=== PATIENT | male | born 1940 | race Caucasian/White ===

== ENCOUNTER → 2021-05-21 | Outpatient (CLI) | payer MEDICARE, OTHER ==
--- NOTE | 2021-05-21 12:43 | RAD ---
XR CHEST 2V History: Reason: COUGH / Spl. Instructions: / History: Comparison: None. Findings: Mild ill-defined bibasilar opacities. Elevation of the right hemidiaphragm. No pleural effusion. No p neumothorax. Left-sided pacemaker. Enlarged cardiac size. Prior median sternotomy. Impression: 1. Mild bibasilar ill-defined opacities, likely atelectasis. 2. Elevation the right hemidiaphragm. 3. Cardiomegaly. Electronically signed by: Pascual Kendall DO (05/21/2021 12:41 PM) [id number]
== END ==
LOC: RAD 11:35
PROVIDERS: ATTEND Nurse Practitioner Family
DX: I51.7 Cardiomegaly (principal); R91.8 Other nonspecific abnormal finding of lung field; J98.6 Disorders of diaphragm; Z95.0 Presence of cardiac pacemaker
CPT/HCPCS: 71046

== ENCOUNTER 2021-05-22 15:33 | Inpatient (IN) | payer MEDICARE, OTHER ==
[~2021-05-22] VITALS: Ht 185.4 cm; Wt 95.3 kg
--- NOTE | 2021-05-22 16:23 | RAD ---
XR CHEST 1V Clinical History: Reason: abn labs / Spl. Instructions: / History: Technique: AP view of the chest was obtained at 05/22/2021 4:02 PM. Comparison: May 21, 2021. Findings: The heart is mildly enlarged. There is elevation right hemidiaphragm. Left-sided pacemaker and median sternotomy wires are again seen. The pulmonary vessels appear normal. There is increased reticular o pacities of lungs and linear opacities in the lower left lung. Impression: 1. Cardiomegaly. 2. Mild bilateral infiltrates appear slightly worse and is likely mild CHF. Electronically signed by: Randall Ng III, MD (05/22/2021 4:21 PM) [facility]
--- NOTE | 2021-05-22 16:25 | EKG ---
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
--- NOTE | 2021-05-22 16:37 | PHYS DOC ---
Past History Past Surgical History: Appendectomy, Coronary Bypass Surgery, Pacemaker, Other Additional Past Surgical Histo: bilat knee replacement; cardiac stents x3 Alcohol Use: None General Adult EDM: Chief Complaint: ABNORMAL LABS HPI: HPI: 80-year-old male past medical history of CAD/CABG with pacemaker, diabetes, hypertension hyperlipidemia, presents the ED with his sister in law, (patient consents to his/her/their knowledge and involvement in pts' medical care), complaints of exertional shortness of breath, orthopnea and worsening fatigue, 'I have to sleep upright in my recliner." Patient reports he was seen at the urgent care clinic yesterday and was told to come to the emergency department due to abnormal labs. I spoke to [facility] urgent care was informed that patient's BNP was 803, glucose was 225 and his chest x-ray showed cardiomegaly and pneumonia. Patient was saturating in the low 90s and is not on any home oxygen. Patient recently moved here from [place] after the loss of his in November. Has not established any primary care-has appointment with Chelsey Bishop on May 31. Also reports no sleep for the past three nights (stressed over loss of his 11/2020 and moving from out of state). Review of Systems: Review of Systems: Constitutional: Denies fever or chills Eyes: Denies change in visual acuity HENT: Denies nasal congestion or sore throat Respiratory: Denies cough or hemoptysis Cardiovascular: Denies chest pain or syncope GI: Denies abdominal pain, nausea, vomiting, bloody stools or diarrhea : Denies dysuria or hematuria Musculoskeletal: Denies back pain or joint pain Integument: Denies rash or diaphoresis Neurologic: Denies headache, focal weakness or sensory changes Endocrine: Denies polyuria or polydipsia Lymphatic: Denies swollen glands Psychiatric: Denies depression or anxiety Allergies: Allergies: Allergies Coded Allergies Type Severity Reaction Last Updated Verified No Known Drug Allergies 05/22/21 No Physical Exam: PE: Constitutional: Well developed, well nourished, no acute distress, non-toxic appearance. HENT: Normocephalic, atraumatic, Eyes: EOMI, conjunctiva normal, no discharge. Neck: Normal range of motion, supple, Cardiovascular: S1/2 present, regular rhythm Lungs & Thorax:bilateral equal chest rise, mild tachypnea present with speech or increased work of breathing Abdomen: soft, no tenderness, Skin: Warm, dry, no erythema, no rash. [] Extremities: No tenderness, no cyanosis, no unilateral lower extremity edema Neurologic: Alert and oriented X 3, normal motor function, normal sensory function, no focal deficits noted. [] Psychologic: Affect normal, judgement normal, mood normal. [] Current Patient Data: Vital Signs: Vital Signs Date Time Temp Pulse Resp B/P (MAP) Pulse Ox O2 Delivery O2 Flow Rate FiO2 05/22/21 15:42 97.8 62 20 125/55 (78) 96 Room Air EKG: EKG: Sinus rhythm 61 bpm, left axis deviation, first-degree AV block with QRS 212, QTC 545, T wave inversion 1 aVL, ventricular paced rhythm, no ST elevation or ST depression Radiology/Procedures: Radiology/Procedures: IMAGING REPORT Signed PATIENT: LILA JO ACCOUNT: [id number] : 1940 LOCATION: ER AGE: 80 SEX: M EXAM STATUS: REG ER ORD. PHYSICIAN: JOSE C STAPLETON DO REASON: abn labs PROCEDURE: PORTABLE CHEST 1V XR CHEST 1V Clinical History: Reason: abn labs / Spl. Instructions: / History: Technique: AP view of the chest was obtained at 05/22/2021 4:02 PM. Comparison: May 21, 2021. Findings: The heart is mildly enlarged. There is elevation right hemidiaphragm. Left-sided pacemaker and median sternotomy wires are again seen. The pulmonary vessels appear normal. There is increased reticular opacities of lungs and linear opacities in the lower left lung. Impression: 1. Cardiomegaly. 2. Mild bilateral infiltrates appear slightly worse and is likely mild CHF. Electronically signed by: Ana Paula Saravia III, MD (05/22/2021 4:21 PM) [facility] DICTATED AND SIGNED BY: ANA PAULA SARAVIA III, MD DATE: 05/22/21 1616 CC: CHELSEY BISHOP MD; JOSE C STAPLETON DO ~ Heart Score: C/O Chest Pain: No Risk Factors: Risk Factors: DM, Current or recent (<one month) smoker, HTN, HLP, family history of CAD, obesity. Risk Scores: Score 0 - 3: 2.5% MACE over next 6 weeks - Discharge Home Score 4 - 6: 20.3% MACE over next 6 weeks - Admit for Clinical Observation Score 7 - 10: 72.7% MACE over next 6 weeks - Early Invasive Strategies Course & Med Decision Making: Course & Med Decision Making Pertinent Labs and Imaging studies reviewed. (See chart for details) Concern for mild, worsening congestive heart failure -chest x-ray worse today when compared to yesterday. Will cover for community-acquired pneumonia with Rocephin and Cipro. Patient is speaking in full sentences not requiring supplemental oxygen. Patient has no associated chest pressure. Will admit for further medical management and cardiology consultation. Patient stable at time of admission agrees with this plan. I have spoken with the patient and/or caregivers. I have explained the patient's condition, diagnosis and treatment plan based on the information available to me at this time. I have answered the patient's and/or caregivers questions and answered any concerns. The patient and/or caregivers have as good an understanding of the patient's diagnosis, condition and treatment plan as can be expected at this point. The patient has been stabilized within the capability of the emergency department. The patient will be transported for further care and management or will be moved to an observation or inpatient service. I have communicated with the staff or medical practitioner taking over this patient's care. Eleno Disclaimer: Eleno Disclaimer: This electronic medical record was generated, in whole or in part, using a voice recognition dictation system. Departure Departure: Impression: Primary Impression: CHF exacerbation Additional Impression: Insomnia Disposition: ADMITTED INPATIENT Admitting Physician: Elvia Middleton Condition: STABLE Referrals: CHELSEY BISHOP MD (PCP) JOSE C STAPLETON DO May 22, 2021 16:37
[2021-05-22 17:10] LABS: BASO % 1 % (0-3); EOS # 0.2 x10^3/uL (0.0-0.7); EOS % 4 % (0-3); HEMOGLOBIN 12.5 g/dL (13.0-17.5); LYMPH # 1.1 x10^3/uL (1.0-4.8); LYMPH % 21 % (24-48); MEAN CORPUSCULAR HEMOGLOBIN 34 pg (25-35); MEAN CORPUSCULAR HGB CONC 34 g/dL (31-37); MEAN CORPUSCULAR VOLUME 101 fL (79-100); MONO # 0.5 x10^3/uL (0.0-1.1); MONO % 9 % (0-9); NEUT # 3.4 x10^3uL (1.8-7.7); NEUT % 66 % (31-73); PLATELET COUNT 141 x10^3/uL (140-400); RED BLOOD COUNT 3.67 x10^6/uL (4.30-5.70); RED CELL DISTRIBUTION WIDTH 13.7 % (11.5-14.5); WHITE BLOOD COUNT 5.2 x10^3/uL (4.0-11.0)
[2021-05-22 17:12] LABS: CREATININE 1.3 mg/dL (0.7-1.3); GFR 52.9; POTASSIUM 4.2 mmol/L (3.5-5.1)
[2021-05-22] MEDS ORDERED: AZITHROMYCIN 500 MG in IV NORMAL SALINE 250ML 250 ML IV ONE (17:15)
[2021-05-22 17:18] LABS: ALBUMIN 2.8 g/dL (3.4-5.0); TOTAL BILIRUBIN 0.7 mg/dL (0.2-1.0); TOTAL PROTEIN 5.6 g/dL (6.4-8.2)
[2021-05-22 17:25] LABS: INFLUENZA A PATIENT NEGATIVE (NEGATIVE); INFLUENZA B PATIENT NEGATIVE (NEGATIVE)
[2021-05-22] MEDS ORDERED: ALPRAZolam 0.25 MG TABLET PO ONE (17:30)
[2021-05-22] MEDS ORDERED: IV NORMAL SALINE 50ML 50 ML ONE (17:47)
[2021-05-22] MEDS ORDERED: AZITHROMYCIN 500 MG VIAL. IV ONE (17:47)
[2021-05-22] MEDS ORDERED: cefTRIAXone SODIUM 1 GM VIAL ONE (17:47)
[2021-05-22] MEDS ORDERED: IV NORMAL SALINE 250ML 250 ML ONE (17:47)
--- NOTE | 2021-05-22 19:00 | NUR ---
ADMISSION: The patient, LILA JO, 80 y/o, M admitted by CRISSY BAILEY MD, was given written information regarding hospital policies, unit procedures and contact persons. Pt arrived to room 123 via gurney, accompanied by [facility] and ED staff. Pt here for c/o increasing SOA over the past couple days and abnormal labs from his visit to urgent care yesterday. Dx: early CHF exacerbation. Pt moved here recently from [place] to be close to brother and JERAD after his 's passing in 11/2020. Pt reports he has been stressed and not sleeping well. Received x1 dose of Xanax will in ED and is now quite drowsy. Pt having difficulty answering admission questions. Will reattempt at later time. VSS, maintaining sats in the mid-90's on RA. Call light in reach. Will consult cardiology in AM. Dr. Bailey phoned and notified of pt arrival. New orders received and entered. Valuables were checked and logged. Left in room with patient.
[2021-05-22] MEDS ORDERED: ZOLPIDEM 5 MG TABLET. PO PRN (19:45)
[2021-05-22] MEDS ORDERED: FUROSEMIDE 20 MG/2 ML VIAL IVP ONE (19:45)
[2021-05-22 20:14] VITALS: BP 112/51
[2021-05-22 23:50] VITALS: BP 136/77
--- NOTE | 2021-05-23 01:12 | NUR ---
Pt is unsure of his home meds. Reports his sister in law has the list and will bring it up later this morning.
[2021-05-23 06:09] VITALS: BP 150/81
[2021-05-23 06:54] LABS: BASO % 1 % (0-3); EOS # 0.2 x10^3/uL (0.0-0.7); EOS % 3 % (0-3); HEMATOCRIT 37.8 % (39.0-53.0); HEMOGLOBIN 12.7 g/dL (13.0-17.5); LYMPH # 1.3 x10^3/uL (1.0-4.8); LYMPH % 19 % (24-48); MEAN CORPUSCULAR HEMOGLOBIN 34 pg (25-35); MEAN CORPUSCULAR HGB CONC 34 g/dL (31-37); MEAN CORPUSCULAR VOLUME 102 fL (79-100); MONO # 0.6 x10^3/uL (0.0-1.1); MONO % 9 % (0-9); NEUT # 4.8 x10^3uL (1.8-7.7); NEUT % 69 % (31-73); PLATELET COUNT 139 x10^3/uL (140-400); RED BLOOD COUNT 3.72 x10^6/uL (4.30-5.70); RED CELL DISTRIBUTION WIDTH 14.4 % (11.5-14.5)
[2021-05-23 07:12] LABS: ALBUMIN 2.8 g/dL (3.4-5.0); CALCIUM 8.3 mg/dL (8.5-10.1); CREATININE 1.2 mg/dL (0.7-1.3); TOTAL BILIRUBIN 0.6 mg/dL (0.2-1.0); TOTAL PROTEIN 5.7 g/dL (6.4-8.2)
--- NOTE | 2021-05-23 08:29 | PDOC2 ---
CARDIAC CONSULT DATE OF CONSULT DOS: DATE: 05/23/21 TIME: 08:25 REASON FOR CONSULT Reason for Consult SOA REFERRING PHYSICIAN Referring Physician Dr. Pena SOURCE Source: Chart review, Patient HPI History of Present Illness This is an 80 yo male who presented secondary to shortness of breath for the last couple of weeks. Is associated with orthopnea. Has been sleeping in a recliner. Denies any chest pain, palpitations, dizziness, diaphoresis, or nausea/vomiting. Does have a history of CAD s/p CABG and pacemaker implantation. He lost his in November of last year and recently moved from [place] to live with his [id number]. Reports his "memory is not good". Is not able to provide name of pharm spec or hospital that he had cardiac workup completed. Thinks his CABG was more than 10 year ago. Has not had any recent cardiac workup per his report. PAST MEDICAL HISTORY Cardiovascular: CAD, HTN, hyperipidemia Psych: Depression Musculoskeletal: Osteoarthritis Endocrine: Diabetes PAST SURGICAL HISTORY Past Surgical History: CABG, Total knee replacement (bilateral ), Pacemaker FAMILY HISTORY Family History: Hypertension SOCIAL HISTORY Smoke: No ALCOHOL: none Drugs: None Lives: with Family CURRENT MEDICATIONS Current Medications Current Medications Ceftriaxone Sodium 1 gm/ Sodium Chloride 50 ml @ 100 mls/hr 1X ONCE IV Last administered on 05/22/21at 17:54; Start 05/22/21 at 17:15; Stop 05/22/21 at 1 7:44; Status DC Azithromycin 500 mg/Sodium Chloride 250 ml @ 250 mls/hr 1X ONCE IV Last administered on 05/22/21at 18:27; Start 05/22/21 at 17:15; Stop 05/22/21 at 18:14; Status DC Alprazolam (Xanax) 0.5 mg 1X ONCE PO Last administered on 05/22/21at 17:53; Start 05/22/21 at 17:30; Stop 05/22/21 at 17:31; Status DC Sodium Chloride 250 ml @ As Directed STK-MED ONCE .ROUTE ; Start 05/22/21 at 17:47; Stop 05/22/21 at 17:47; Status DC Sodium Chloride 50 ml @ As Directed STK-MED ONCE .ROUTE ; Start 05/22/21 at 17:47; Stop 05/22/21 at 17:47; Status DC Azithromycin (Zithromax) 500 mg STK-MED ONCE IV ; Start 05/22/21 at 17:47; Stop 05/22/21 at 17:47; Status DC Ceftriaxone Sodium (Rocephin) 1 gm STK-MED ONCE .ROUTE ; Start 05/22/21 at 17:47; Stop 05/22/21 at 17:47; Status DC Furosemide (Lasix) 20 mg 1X ONCE IVP Last administered on 05/22/21at 20:02; Start 05/22/21 at 19:45; Stop 05/22/21 at 19:49; Status DC Furosemide (Lasix) 40 mg DAILY IVP ; Start 05/23/21 at 09:00 Zolpidem Tartrate (Ambien) 5 mg PRN QHS PRN PO INSOMNIA; Start 05/22/21 at 19:45 ALLERGIES Allergies: Coded Allergies: No Known Drug Allergies (Unverified , 05/22/21) ROS Review of Systems 14 point ROS conducted with pertinent positives noted above in hPI PHYSICAL EXAM General: Alert, Oriented X3, Cooperative, No acute distress HEENT: Atraumatic Lungs: Other (diminished bases) Heart: Regular rate Abdomen: Soft Extremities: No edema, Normal pulses Skin: No breakdown Neuro: Normal speech, Sensation intact VITALS Vital Signs Vital Signs Date Time Temp Pulse Resp B/P (MAP) Pulse Ox O2 Delivery O2 Flow Rate FiO2 05/23/21 06:09 97.9 73 16 150/81 (104) 92 Room Air LABS LABS Laboratory Tests Test 05/22/21 16:25 05/22/21 16:28 05/22/21 21:30 05/23/21 06:05 Influenza Type A (Rapid) Negative (NEGATIVE) Influenza Type B (Rapid) Negative (NEGATIVE) SARS-CoV-2 Antigen (Rapid) Negative (NEGATIVE) White Blood Count 5.2 x10^3/uL (4.0-11.0) 7.0 x10^3/uL (4.0-11.0) Red Blood Count 3.67 x10^6/uL (4.30-5.70) 3.72 x10^6/uL (4.30-5.70) Hemoglobin 12.5 g/dL (13.0-17.5) 12.7 g/dL (13.0-17.5) Hematocrit 37.0 % (39.0-53.0) 37.8 % (39.0-53.0) Mean Corpuscular Volume 101 fL (79-100) 102 fL (79-100) Mean Corpuscular Hemoglobin 34 pg (25-35) 34 pg (25-35) Mean Corpuscular Hemoglobin Concent 34 g/dL (31-37) 34 g/dL (31-37) Red Cell Distribution Width 13.7 % (11.5-14.5) 14.4 % (11.5-14.5) Platelet Count 141 x10^3/uL (140-400) 139 x10^3/uL (140-400) Neutrophils (%) (Auto) 66 % (31-73) 69 % (31-73) Lymphocytes (%) (Auto) 21 % (24-48) 19 % (24-48) Monocytes (%) (Auto) 9 % (0-9) 9 % (0-9) Eosinophils (%) (Auto) 4 % (0-3) 3 % (0-3) Basophils (%) (Auto) 1 % (0-3) 1 % (0-3) Neutrophils # (Auto) 3.4 x10^3uL (1.8-7.7) 4.8 x10^3uL (1.8-7.7) Lymphocytes # (Auto) 1.1 x10^3/uL (1.0-4.8) 1.3 x10^3/uL (1.0-4.8) Monocytes # (Auto) 0.5 x10^3/uL (0.0-1.1) 0.6 x10^3/uL (0.0-1.1) Eosinophils # (Auto) 0.2 x10^3/uL (0.0-0.7) 0.2 x10^3/uL (0.0-0.7) Basophils # (Auto) 0.0 x10^3/uL (0.0-0.2) 0.0 x10^3/uL (0.0-0.2) D-Dimer (Noemi) 1.00 mg/L (0.00-0.50) Sodium Level 138 mmol/L (136-145) 141 mmol/L (136-145) Potassium Level 4.2 mmol/L (3.5-5.1) 4.0 mmol/L (3.5-5.1) Chloride Level 103 mmol/L (98-107) 106 mmol/L (98-107) Carbon Dioxide Level 27 mmol/L (21-32) 26 mmol/L (21-32) Anion Gap 8 (6-14) 9 (6-14) Blood Urea Nitrogen 22 mg/dL (8-26) 22 mg/dL (8-26) Creatinine 1.3 mg/dL (0.7-1.3) 1.2 mg/dL (0.7-1.3) Estimated GFR (Cockcroft-Gault) 52.9 58.0 BUN/Creatinine Ratio 17 (6-20) 18 (6-20) Glucose Level 234 mg/dL (70-99) 91 mg/dL (70-99) Calcium Level 8.0 mg/dL (8.5-10.1) 8.3 mg/dL (8.5-10.1) Total Bilirubin 0.7 mg/dL (0.2-1.0) 0.6 mg/dL (0.2-1.0) Aspartate Amino Transf (AST/SGOT) 26 U/L (15-37) 22 U/L (15-37) Alanine Aminotransferase (ALT/SGPT) 29 U/L (16-63) 25 U/L (16-63) Alkaline Phosphatase 84 U/L (46-116) 77 U/L (46-116) Creatine Kinase 81 U/L (39-308) Troponin I High Sensitivity 26 ng/L (4-75) 25 ng/L (4-75) 28 ng/L (4-75) Total Protein 5.6 g/dL (6.4-8.2) 5.7 g/dL (6.4-8.2) Albumin 2.8 g/dL (3.4-5.0) 2.8 g/dL (3.4-5.0) Albumin/Globulin Ratio 1.0 (1.0-1.7) 1.0 (1.0-1.7) Test 05/23/21 07:46 Glucose (Fingerstick) 105 mg/dL (70-99) ASSESSMENT/PLAN Assessment/Plan 1. Acute CHF with possibly diastolic dysfunction; s/p IV Lasix 2. CAD s/p remote CABG 3. SSS s/p PPM ([employer]). v-paced 4. Hypertension; controlled 5. Hyperlipidemia 6. Diabetes, II 7. Depression; recent lost and moved here from [place] Recommendations Diuresis with monitoring of labs Resume secondary prevention measures Will need to obtain med list from family Needs to establish cardiology care here as patient has recently re-located from [place] Outpatient echo arranged Follow up in our office with Dr. Pearce has been scheduled. ROMAN VILLAVICENCIO APRN May 23, 2021 08:29
[2021-05-23] MEDS: FUROSEMIDE 40 MG/4 ML VIAL IVP SCH (08:37)
[2021-05-23 10:51] VITALS: BP 152/76
[2021-05-23 10:55] LABS: BACTERIA,URINE 0 /HPF (0-FEW); CLARITY,URINE CLEAR; COLOR,URINE YELLOW; GLUCOSE,URINE NEG (NEG); GRANULAR CASTS,URINE FEW /HPF; HYALINE CASTS, URINE FEW /HPF; NITRITE,URINE NEG (NEG); SQUAMOUS EPITHELIAL CELL,UR FEW /LPF; UROBILINOGEN,URINE 0.2 mg/dL (0.2 mg/dL)
[2021-05-23] MEDS ORDERED: POTASSIUM CHLORIDE 20 MEQ TABLET.ER. PO ONE (14:30)
[2021-05-23 15:41] VITALS: BP 154/80
[2021-05-23] MEDS ORDERED: DEXTROSE 50% 25 GM / 50ML DISP.SYRIN. IV PRN (17:15)
[2021-05-23] MEDS ORDERED: CETI10TA16 PO (17:55)
[2021-05-23] MEDS ORDERED: CLOP75TA PO (17:55)
[2021-05-23] MEDS ORDERED: CARV6.2541 PO (17:55)
[2021-05-23] MEDS ORDERED: FLUT9.9S NS (17:55)
[2021-05-23] MEDS ORDERED: ROSUVASTATIN CA20 MG PO (17:55)
[2021-05-23] MEDS ORDERED: DULA1.5P SQ (17:55)
[2021-05-23] MEDS ORDERED: LEVO137T3 PO (17:55)
[2021-05-23] MEDS ORDERED: LOSA25TA11 PO (17:55)
[2021-05-23] MEDS ORDERED: CITA40TA6 PO (17:55)
--- NOTE | 2021-05-23 17:57 | HP ---
DATE OF SERVICE: 05/23/2021 ADMIT DATE: 05/23/2021 HISTORY OF PRESENT ILLNESS: This is an 80-year-old male patient who has moved from the [facility] to live with his [id number], as his last November and has been doing well over the last 3 months; however, recently, he started complaining of increasing shortness of breath for the last couple of weeks associated with orthopnea, has been sleeping in a recliner. Denied any chest pain, palpitation, dizziness, diaphoresis, nausea or vomiting. He is known to have coronary artery disease status post CABG x 4 as well as a pacemaker implantation. He stated that his memory is not good and does not remember his medication list and his [id number] is planning to bring the medication today. In any case, the patient was extensively evaluated in the Emergency Room, has had lab work and imaging studies. His lab work showed that he has hyperglycemia; otherwise, all his labs are unremarkable. His CBC was also unremarkable. His D-dimer was 1. Urinalysis was essentially unremarkable and his influenza A and B as well as coronavirus by rapid testing and PCR were all negative. His chest x-ray showed the heart is mildly enlarged. There is elevation of the right hemidiaphragm, and left-sided pacemaker and median sternotomy wires are again seen. The pulmonary vessels appear normal. There is increased reticular opacities of the lungs and linear opacities of the lower left lung, with the impression that the patient has cardiomegaly as well as mild bilateral infiltrate, appears slightly worse, with slightly mild congestive heart failure. The patient was treated with antibiotic as well as Lasix and was admitted for further evaluation and treatment and to consult the Cardiology team. PAST MEDICAL HISTORY: Significant for hypertension, hyperlipidemia, type 2 diabetes mellitus, coronary artery disease status post CABG x 4, hypothyroidism. He also has one episode of gout. PAST SURGICAL HISTORY: Significant for coronary artery bypass graft surgery, bilateral total knee arthroplasty, pacemaker implantation, bilateral cataract extraction, tonsillectomy, appendectomy. He had also Lap-Band surgery. His weight came down about 100 pounds from 315 to 214. He had had also a colonoscopy about 10 years ago, never had any upper GI endoscopy. ALLERGIES: He has no known drug allergies. MEDICATIONS: We are still waiting for his [id number]-[id number] to bring us the medication list. FAMILY HISTORY: He has one sister, younger and healthy. His father at age of 52 because of myocardial infarction. His mother at age of 72. SOCIAL HISTORY: He is , has a son and daughter from a previous marriage. He never smoked, drinks alcohol very little. Does not use any drugs. 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 REVIEW OF SYSTEMS: The patient denied any blurring of vision, has bilateral cataract extraction, but denied any glaucoma or macular degeneration. Denied any earache, tinnitus or sensorineural deafness. Denied any nosebleed, stuffy nose or postnasal drip. Denied any sore throat, sore tongue, toothache, hoarseness of voice or difficulty swallowing. Denied any nausea, vomiting, diarrhea or constipation. Denied any hematemesis, melena or hematochezia. Denied any dysuria, frequency or hematuria. Denied any chest pain. Did complain of shortness of breath as well as orthopnea, but denied any paroxysmal nocturnal dyspnea. Denied any chest pain. Denied any cough, phlegm or hemoptysis. Denied any dizziness, lightheadedness or vertigo. PHYSICAL EXAMINATION: GENERAL: On arrival to the Emergency Room, he was somewhat pale, not jaundiced, cyanosed or thyromegaly. No jugular venous distention. No limb edema. VITAL SIGNS: His heart rate was 62, blood pressure was 125/55, temperature was 97.8, respiratory rate 20, and oxygen saturation was 96% on room air. HEAD, EYES, EARS, NOSE AND THROAT: Normocephalic, atraumatic. NECK: Supple. HEART: Normal first and second heart sounds. No gallop, rub or murmur. CHEST: Clear to auscultation, no crepitation or rhonchi. ABDOMEN: Distended, soft, nontender. NEUROLOGIC: He was grossly intact. He ambulates with a walker. LABORATORY DATA: On arrival showed a white cell count of 5200, hemoglobin 12.5, hematocrit 37, MCV 101 and platelet count of 141,000, with normal manual differential. His chemistry showed a serum sodium of 138, potassium 4.2, chloride 103, bicarbonate 27, anion gap of 8, BUN 22, creatinine 1.3. Estimated GFR was 53 mL per minute. His glucose was 234, calcium was 8. Total bilirubin, AST, ALT, alkaline phosphatase were normal. CK was 81. Troponin I high sensitivity was 25. Total protein 5.6, albumin was 2.8. His D-dimer was 1. Urinalysis was essentially unremarkable and his influenza A and B as well as coronavirus by rapid testing and by PCR were both negative. ASSESSMENT AND PLAN: The patient was admitted with [id number] congestive heart failure. He was also treated for possible community-acquired pneumonia. My plan is to continue with IV Lasix. Continue with IV antibiotic. We are waiting for the list of his medications and I will repeat all his labs again tomorrow. I would consult physical and occupational therapy, and if he remains stable, he can be discharged home. RACHEAL DR: Yandy TID: [id number]
[2021-05-23 19:00] VITALS: BP 151/79
[2021-05-23] MEDS ORDERED: ZOLPIDEM 5 MG TABLET. PO PRN (20:30)
[2021-05-23] MEDS ORDERED: ATORVASTATIN CALCIUM 20 MG TABLET PO SCH ×2 (21:00)
--- NOTE | 2021-05-23 22:33 | PN ---
DATE: 05/23/2021 SUBJECTIVE: The patient is resting, slightly propped up in bed, in no apparent respiratory distress. He feels slightly better, continued to have cough, which is dry and he is short of breath on exertion. PHYSICAL EXAMINATION: GENERAL: When I examined him, he looked well and there was no pallor, jaundice, cyanosis or thyromegaly. No jugular venous distention. No lower limb edema. VITAL SIGNS: His heart rate was 64, blood pressure 154/80, temperature 98.1, respiratory rate was 18 and oxygen saturation was 96%. HEAD, EYES, EARS, NOSE, AND THROAT: Normocephalic, atraumatic. NECK: Supple. HEART: Showed normal first and second heart sounds. No gallop, rub or murmur. CHEST: Shows central trachea, equal bilateral expansion, air entry, vesicular breath sounds, and very few bilateral basal crepitation. I could not appreciate any rhonchi. ABDOMEN: Distended, soft, nontender. NEUROLOGIC: He was grossly intact. His intake over the last 24 hours was incompletely recorded. LABORATORY DATA: This morning showed his white cell count to be 7000, hemoglobin 13, hematocrit 38, MCV 102 and platelet count of 139,000. His chemistry this morning showed a serum sodium 141, potassium 4, chloride 106, bicarbonate 26, anion gap of 9, BUN 22, creatinine 1.2. Estimated GFR was 58 mL per minute. His glucose was 91, calcium was 8.3. Total bilirubin, AST, ALT, alkaline phosphatase were normal. He has 3 sets of troponin I high sensitivity that ruled out acute myocardial infarction. His total protein 5.7, albumin was 2.8. ASSESSMENT: 1. Acute on chronic diastolic congestive heart failure, slightly better. 2. Coronary artery disease status post coronary artery bypass graft. 3. Sick sinus syndrome, status post permanent pacemaker. 4. Hypertension, well controlled. 5. Hyperlipidemia. 6. Type 2 diabetes mellitus. 7. Depression as he recently lost his and moved here from [place], has also protein-calorie malnutrition. Serum albumin is only 2.8 g/L. PLAN: To await the list of his medication as his hwfete-tf-fnw is going to bring them today. I will reconcile them. I will start him on insulin sliding scale. We will get also physical and occupational therapy tomorrow and if he remains stable, he can be discharged home. AMM/DSD DR: Yandy TID: [id number]
[2021-05-23 23:00] VITALS: BP 154/76
--- NOTE | 2021-05-24 03:27 | NUR ---
INTERVENTIONS AND WIRELESS FIELD TECHNICIAN WERE CHARTED BY SN FAHAD UNDER THE DIRECT SUPERVISION OF THIS RN.
[2021-05-24 05:00] VITALS: BP 149/77
[2021-05-24] MEDS ORDERED: LEVOTHYROXINE 137 MCG TABLET PO SCH (06:00)
[2021-05-24 06:26] LABS: CALCIUM 7.8 mg/dL (8.5-10.1); CREATININE 1.2 mg/dL (0.7-1.3)
[2021-05-24] MEDS: INSULIN LISPRO 300 UNITS/3 ML VIAL. SQ SCH ×2 (08:00→13:06)
[2021-05-24] MEDS ORDERED: CARVEDILOL 6.25 MG TABLET PO SCH (08:00)
[2021-05-24] MEDS ORDERED: ASPIRIN ENTERIC COATED 81 MG TABLET.DR. PO SCH (08:00)
[2021-05-24] MEDS ORDERED: AZITHROMYCIN 250 MG TABLET. PO SCH (09:00)
[2021-05-24] MEDS ORDERED: CLOPIDOGREL BISULFATE 75 MG TABLET PO SCH (09:00)
[2021-05-24] MEDS ORDERED: CETIRIZINE HCL 10 MG TABLET PO SCH (09:00)
[2021-05-24] MEDS ORDERED: CITALOPRAM 20 MG TABLET. PO SCH (09:00)
[2021-05-24] MEDS ORDERED: LOSARTAN 25 MG TABLET. PO SCH (09:00)
[2021-05-24] MEDS ORDERED: FLUTICASONE 50MCG/NASAL SPRAY 16GM BOTTLE. NS SCH (09:00)
[2021-05-24] MEDS: FUROSEMIDE 40 MG/4 ML VIAL IVP SCH (09:23)
[2021-05-24 09:45] VITALS: BP 157/77
[2021-05-24 11:30] VITALS: BP 152/83
[2021-05-24] MEDS ORDERED: AZIT250T PO (13:28)
[2021-05-24] MEDS ORDERED: CEFD300C PO (13:28)
[2021-05-24] MEDS ORDERED: FURO-69 PO (13:28)
[2021-05-24] MEDS ORDERED: TRAZ-120 PO (13:28)
--- NOTE | 2021-05-24 13:30 | DISCH ---
HOME HEALTH DISCHARGE/MEDS DISCHARGE INFORMATION: Discharge Date: May 24, 2021 Final Diagnosis: Problems Medical Problems: (1) CHF exacerbation Status: Acute (2) Insomnia Status: Acute Condition on Discharge: Stable CODE STATUS: Code Status: Full HOME HEALTH: Face to Face: I certify this patient is under my care and that I, or a nurse practitioner or physician's accounts payable assistant working with me, had a face to face encounter that meets the physician face to face encounter requirements with this patient on 05/24 Medical Condition(s): CHF Long-Term For: Medication Management Physical Therapy For: Evalulation/Treatment Occupational Therapy For: Evaluation/Treatment POST DISCHARGE ORDERS: Activity Instructions for Disc: Activity as tolerated DIET AFTER DISCHARGE: Cardiac CERTIFICATION STATEMENT: Certification Statement: Based on the above finding, I certify that this patient is confined to the home and needs intermittent shelter care, physical th erapy and/or speech therapy, or continues to need occupational therapy.~ This patient is under my care, and I have initiated the establishment of the plan of care.~ This patient will be followed by myself or a community physician who will periodically review the plan of care. DISCHARGE MEDICATIONS: Home Meds Active Scripts Trazodone Hcl (TRAZODONE HCL) 50 Mg Tablet, 1 TAB PO QHS for insomnia for 30 Days, #30 TAB 5 Refills Prov:CRISSY BAILEY MD 05/24/21 Furosemide (LASIX) 20 Mg Tablet, 1 TAB PO DAILY for chf for 30 Days, #30 TAB 0 Refills Prov:CRISSY BAILEY MD 05/24/21 Cefdinir (CEFDINIR) 300 Mg Capsule, 1 CAP PO BID for cap, #14 CAP Prov:CRISSY BAILEY MD 05/24/21 Azithromycin (ZITHROMAX) 250 Mg Tablet, 250 MG PO DAILY for ANTI-BIOTIC for 4 Days, #4 TAB 0 Refills Prov:CRISSY BAILEY MD 05/24/21 Reported Medications Rosuvastatin Calcium (Rosuvastatin Calcium) 20 Mg Tablet, 1 TAB PO QHS for hld, TAB 05/23/21 Losartan Potassium (LOSARTAN POTASSIUM ) 25 Mg Tablet, 25 MG PO DAILY for HYPERTENSION, TAB 05/23/21 Levothyroxine Sodium (LEVOTHYROXINE SODIUM) 137 Mcg Tablet, 1 TAB PO DAILY for thyroid replacment, TAB 05/23/21 Fluticasone Propionate (Flonase Allergy Relief) 9.9 Ml [place].susp, 2 SPRAYS NS DAILY for allergy, ML 05/23/21 Dulaglutide (Trulicity) 1.5 Mg/0.5 Ml Pen.injctr, 1.5 MG SQ WEEKLY for blood sugar, EACH 05/23/21 Clopidogrel Bisulfate (CLOPIDOGREL) 75 Mg Tablet, 75 MG PO DAILY for TO PREVENT BLOOD CLOTS, TAB 05/23/21 Citalopram Hydrobromide (CITALOPRAM HBR) 40 Mg Tablet, 40 MG PO DAILY for antideppresant, TAB 05/23/21 Cetirizine Hcl (CETIRIZINE HCL) 10 Mg Tablet, 1 TAB PO DAILY for allergy, TAB 05/23/21 Carvedilol (CARVEDILOL ) 6.25 Mg Tablet, 6.25 MG PO BIDWMEALS for CARDIAC, TAB 05/23/21 CRISSY BAILEY MD May 24, 2021 13:30
--- NOTE | 2021-05-24 15:00 | NUR ---
PT DISCHARGED AT APPROX 1400 VIA WHEELCHAIR TO THE FRONT OF THE HOPSITAL WHERE SISTER IN LAW WAS WAITING FOR THE PT
[2021-05-24] MEDS ORDERED: LACTOBACILLUS RHAMNOSUS GG 1 CAPSULE. PO SCH (21:00)
[2021-05-30] MEDS ORDERED: NON FORMULARY ITEM (Dulaglutide (Trulicity) 1.5 MG) SQ SCH (09:00)
== END 2021-05-24 14:00 | disposition home health service (06) | DRG 291 ==
LOC: ER 15:33 → UNDOADMIN 17:19 → ER HOLD 17:19 → 1 SOUTH 18:38 → ER 19:10 → EDBEDREQ 05-23 16:17 → CMPBEDREQ 05-23 16:25 → 1 SOUTH 05-23 16:57
PROVIDERS: ADMIT Internal Medicine; ATTEND Internal Medicine
DX: I11.0 Hypertensive heart disease with heart failure (principal); I50.33 Acute on chronic diastolic (congestive) heart failure; E46 Unspecified protein-calorie malnutrition; E03.9 Hypothyroidism, unspecified; E11.9 Type 2 diabetes mellitus without complications; E78.5 Hyperlipidemia, unspecified; F32.A Depression, unspecified; I25.10 Atherosclerotic heart disease of native coronary artery without angina pectoris; I49.5 Sick sinus syndrome; Z96.653 Presence of artificial knee joint, bilateral; Z20.822 Contact with and (suspected) exposure to COVID-19; Z82.49 Family history of ischemic heart disease and other diseases of the circulatory system; Z95.0 Presence of cardiac pacemaker; Z95.1 Presence of aortocoronary bypass graft; Z98.41 Cataract extraction status, right eye; Z98.42 Cataract extraction status, left eye; Z68.27 Body mass index [BMI] 27.0-27.9, adult
CPT/HCPCS: 36415; 71045; 71046; 80048; 80053; 81001; 82550; 82947; 84484; 85025; 85379; 87428; 93005; 96365; 96366; 96368; J0456; J0696; J1815; J1940; J7050; U0003; 99285-25

== ENCOUNTER 2021-07-04 11:51 | Observation (INO) | payer MEDICARE, OTHER ==
[~2021-07-04] VITALS: Ht 185.4 cm; Wt 91.0 kg
[~2021-07-04 11:51] MED LIST: ASPI-630 PO; AZIT250T PO; AZIT250T6 PO; CARV6.2541 PO; CEFD300C PO; CETI10TA16 PO; CITA40TA6 PO; CLOP75TA PO; DULA1.5P SQ; FLUT9.9S NS; FURO-69 PO; INSU100I32 SQ; LEVO137T3 PO; LOSA25TA11 PO; ROSUVASTATIN CA20 MG PO; TRAZ-120 PO
[2021-07-04] MEDS ORDERED: ONDANSETRON PF 4 MG/2 ML VIAL. IVP PRN (12:30)
[2021-07-04 12:34] VITALS: BP 122/76
[2021-07-04 12:42] LABS: BASO % 1 % (0-3); EOS # 0.1 x10^3/uL (0.0-0.7); EOS % 3 % (0-3); HEMATOCRIT 36.7 % (39.0-53.0); HEMOGLOBIN 12.3 g/dL (13.0-17.5); LYMPH # 0.5 x10^3/uL (1.0-4.8); LYMPH % 10 % (24-48); MEAN CORPUSCULAR HEMOGLOBIN 33 pg (25-35); MEAN CORPUSCULAR HGB CONC 34 g/dL (31-37); MEAN CORPUSCULAR VOLUME 98 fL (79-100); MONO # 0.4 x10^3/uL (0.0-1.1); MONO % 10 % (0-9); NEUT # 3.6 x10^3uL (1.8-7.7); NEUT % 77 % (31-73); PLATELET COUNT 129 x10^3/uL (140-400); RED BLOOD COUNT 3.75 x10^6/uL (4.30-5.70); RED CELL DISTRIBUTION WIDTH 15.7 % (11.5-14.5); WHITE BLOOD COUNT 4.7 x10^3/uL (4.0-11.0)
[2021-07-04] MEDS: IV 1/2 NORMAL SALINE 1,000 ML IV SCH ×2 (13:12→20:56)
[2021-07-04 13:18] LABS: ALBUMIN 2.7 g/dL (3.4-5.0); ALBUMIN/GLOBULIN RATIO 0.9 (1.0-1.7); CALCIUM 8.3 mg/dL (8.5-10.1); CREATININE 1.2 mg/dL (0.7-1.3); POTASSIUM 4.5 mmol/L (3.5-5.1); TOTAL BILIRUBIN 1.3 mg/dL (0.2-1.0); TOTAL PROTEIN 5.7 g/dL (6.4-8.2)
--- NOTE | 2021-07-04 13:44 | NUR ---
Patient arrived to the unit as a direct admit. Patient is alert and oriented. Patient is not complaining of any pain or N/V at the time of admission. Patient was oriented to unit routines. Patient is currently in bed with side rails up X's 2 with call light in reach.
--- NOTE | 2021-07-04 14:50 | RAD ---
Axial noncontrast CT imaging the abdomen pelvis was obtained. Coronal and sagittal reformats are avai lable. No oral contrast was administered. INDICATION: Nausea and vomiting. COMPARISON: None. FINDINGS: There is a small right basilar effusion. There is mild pulmonary vascular congestion particularly on the right. Left lung is clear. The heart is enlarged. Sternotomy wires, dense calcific coronary arter y disease and pacemaker leads are identified. Limited evaluation solid organs without intravenous contrast. Gallstones are identified. No evidence of cholecystitis. Noncontrasted liver spleen and pancreas are grossly unremarkable in appearance. The right adrenal gland is normal in appearance. In the anterior left adrenal gland there is a focal 2.3 cm nodule with macroscopic fat. There is bilateral mild renal parenchymal thinning. There is a benig n-appearing cystic lesion in the left mid pole kidney measuring 1.7 cm. Stomach, small and large bowel are nondistended. No evidence pathologic wall thickening. There is sig moid diverticulosis without diverticulitis. The appendix is not identified, there are no inflammatory changes in the right lower quadrant. Patient status post gastric banding procedure. The aorta is den sely calcified without aneurysmal dilation. The urinary bladder is not significantly distended. No fr ee air-fluid. Radiologically significant retroperitoneal or mesenteric lymphadenopathy. Bony structur es show age-appropriate degenerative change. IMPRESSION: 1. Limited evaluation without intravenous contrast. 2. Cholelithiasis without cholecystitis. 3. Sigmoid diverticulosis without diverticulitis. 4. Small right basilar effusion with atelectasis and pulmonary vascular congestion. 5. Significant coronary artery disease with cardiomegaly sternotomy wires and pacemaker leads partial ly identified.. Exposure: One or more of the following individualized dose reduction techniques were utilized for thi s examination: 1. Automated exposure control 2. Adjustment of the mA and/or kV according to patient size 3. Use of iterative reconstruction technique Electronically signed by: Casper Aj MD (07/04/2021 2:48 PM) [facility]
[2021-07-04 15:50] VITALS: BP 109/66
[2021-07-04 19:50] VITALS: BP 113/66
[2021-07-04] MEDS ORDERED: traZODone 50 MG TABLET. PO SCH (21:00)
[2021-07-04] MEDS ORDERED: ATORVASTATIN CALCIUM 20 MG TABLET PO SCH (21:00)
[2021-07-04 23:32] VITALS: BP 127/79
[2021-07-05 05:47] VITALS: BP 112/75
[2021-07-05] MEDS ORDERED: LEVOTHYROXINE 137 MCG TABLET PO SCH (06:00)
[2021-07-05 06:04] LABS: BASO % 1 % (0-3); EOS # 0.2 x10^3/uL (0.0-0.7); EOS % 6 % (0-3); HEMATOCRIT 37.3 % (39.0-53.0); HEMOGLOBIN 12.3 g/dL (13.0-17.5); LYMPH # 0.9 x10^3/uL (1.0-4.8); LYMPH % 21 % (24-48); MEAN CORPUSCULAR HEMOGLOBIN 33 pg (25-35); MEAN CORPUSCULAR HGB CONC 33 g/dL (31-37); MEAN CORPUSCULAR VOLUME 99 fL (79-100); MONO # 0.5 x10^3/uL (0.0-1.1); MONO % 12 % (0-9); NEUT # 2.6 x10^3uL (1.8-7.7); NEUT % 61 % (31-73); PLATELET COUNT 122 x10^3/uL (140-400); RED BLOOD COUNT 3.78 x10^6/uL (4.30-5.70); RED CELL DISTRIBUTION WIDTH 15.6 % (11.5-14.5); WHITE BLOOD COUNT 4.2 x10^3/uL (4.0-11.0)
[2021-07-05 06:21] LABS: CALCIUM 8.2 mg/dL (8.5-10.1); CREATININE 1.4 mg/dL (0.7-1.3); GFR 48.5; POTASSIUM 4.4 mmol/L (3.5-5.1)
[2021-07-05] MEDS ORDERED: CARVEDILOL 6.25 MG TABLET PO SCH (08:00)
[2021-07-05] MEDS: IV 1/2 NORMAL SALINE 1,000 ML IV SCH (08:51)
[2021-07-05] MEDS ORDERED: FUROSEMIDE 20 MG TABLET PO SCH (09:00)
[2021-07-05] MEDS ORDERED: ASPIRIN CHEWABLE 81 MG TABLET. PO SCH (09:00)
[2021-07-05] MEDS ORDERED: CETIRIZINE HCL 10 MG TABLET PO SCH (09:00)
[2021-07-05] MEDS ORDERED: FLUTICASONE 50MCG/NASAL SPRAY 16GM BOTTLE. NS SCH (09:00)
[2021-07-05] MEDS ORDERED: CLOPIDOGREL BISULFATE 75 MG TABLET PO SCH (09:00)
[2021-07-05] MEDS ORDERED: CITALOPRAM 20 MG TABLET. PO SCH (09:00)
[2021-07-05] MEDS ORDERED: diazePAM 2 MG TABLET. PO ONE (10:00)
--- NOTE | 2021-07-05 10:21 | DISCH ---
HOME HEALTH DISCHARGE/MEDS DISCHARGE INFORMATION: Discharge Date: July 05, 2021 Final Diagnosis: nausea and vomiting shortness of breath Condition on Discharge: Stable CODE STATUS: Code Status: Full HOME HEALTH: Face to Face: I certify this patient is under my care and that I, or a nurse practitioner or physician's speech and language assistant working with me, had a face to face encounter that meets the physician face to face encounter requirements with this patient on June. Medical Condition(s): CHF, Dementia, Falls, HTN Nursing Home For: Assess Cardiopulm Status, Assess & Educate Safety, Assess/Skilled Observatio, Medication Management Physical Therapy For: Evalulation/Treatment Occupational Therapy For: Evaluation/Treatment Homebound Status Met By: Unsteady balance w/ amb, POST DISCHARGE ORDERS: Activity Instructions for Disc: Activity as tolerated Weight Bearing Status after Di: No restrictions DIET AFTER DISCHARGE: Regular CERTIFICATION STATEMENT: Certification Statement: Based on the above finding, I certify that this patient is confined to the home and needs intermittent group home care, physical therapy and/or speech therapy, or continues to need occupational therapy.~ This patient is under my care, and I have initiated the establishment of the plan of care.~ This patient will be followed by myself or a community physician who will periodically review the plan of care. DISCHARGE MEDICATIONS: Home Meds Active Scripts Azithromycin (AZITHROMYCIN TABLET) 250 Mg Tablet, 250 MG PO Q24H for bronchitis for 3 Days, #3 TAB Prov:KATHI BLACKWELL MD 06/25/21 Trazodone Hcl (TRAZODONE HCL) 50 Mg Tablet, 1 TAB PO QHS for insomnia for 30 Days, #30 TAB 5 Refills Prov:CRISSY BAILEY MD 05/24/21 Furosemide (LASIX) 20 Mg Tablet, 1 TAB PO DAILY for chf for 30 Days, #30 TAB 0 Refills Prov:CRISSY BAILEY MD 05/24/21 Reported Medications Insulin Glargine,Hum.rec.anlog (Basaglar Kwikpen U-100) 100 Unit/1 Ml Insuln.pen, 25 UNIT SQ DAILY for DM, EACH 06/24/21 Aspirin (ASPIRIN) 81 Mg Tab.chew, 81 MG PO DAILY for vte, TAB 06/24/21 Rosuvastatin Calcium (Rosuvastatin Calcium) 20 Mg Tablet, 1 TAB PO QHS for hld, TAB 05/23/21 Levothyroxine Sodium (LEVOTHYROXINE SODIUM) 137 Mcg Tablet, 1 TAB PO DAILY for thyroid replacment, TAB 05/23/21 Fluticasone Propionate (Flonase Allergy Relief) 9.9 Ml [place].susp, 2 SPRAYS NS DAILY for allergy, ML 05/23/21 Dulaglutide (Trulicity) 1.5 Mg/0.5 Ml Pen.injctr, 1.5 MG SQ WEEKLY for blood sugar, EACH 05/23/21 Clopidogrel Bisulfate (CLOPIDOGREL) 75 Mg Tablet, 75 MG PO DAILY for TO PREVENT BLOOD CLOTS, TAB 05/23/21 Citalopram Hydrobromide (CITALOPRAM HBR) 40 Mg Tablet, 40 MG PO DAILY for antideppresant, TAB 05/23/21 Cetirizine Hcl (CETIRIZINE HCL) 10 Mg Tablet, 1 TAB PO DAILY for allergy, TAB 05/23/21 Carvedilol (CARVEDILOL ) 6.25 Mg Tablet, 6.25 MG PO BIDWMEALS for CARDIAC, TAB 05/23/21 KATHI BLACKWELL MD July 05, 2021 10:21
[2021-07-05 11:00] VITALS: BP 110/66
[2021-07-05 12:11] LABS: CLARITY,URINE CLEAR; COLOR,URINE YELLOW; GLUCOSE,URINE NEG (NEG)
[2021-07-05 12:12] LABS: BACTERIA,URINE 0 /HPF (0-FEW); NITRITE,URINE NEG (NEG); RBC,URINE OCC /HPF (0-2); SQUAMOUS EPITHELIAL CELL,UR OCC /LPF; WBC,URINE OCC /HPF (0-4)
[2021-07-05 15:10] VITALS: BP 122/74
[2021-07-11] MEDS ORDERED: NON FORMULARY ITEM (Dulaglutide (Trulicity) 1.5 MG) SQ SCH (09:00)
== END 2021-07-05 16:53 | disposition home or self-care (01) ==
LOC: INTOOBSV 12:02 → 1 SOUTH 12:02
PROVIDERS: ADMIT Family Medicine; ATTEND Family Medicine
DX: R11.2 Nausea with vomiting, unspecified (principal); R06.02 Shortness of breath; E86.0 Dehydration; I11.0 Hypertensive heart disease with heart failure; I50.9 Heart failure, unspecified; F02.80 Dementia in other diseases classified elsewhere, unspecified severity, without behavioral disturbance, psychotic disturbance, mood disturbance, and anxiety; Z79.4 Long term (current) use of insulin; Z79.82 Long term (current) use of aspirin
CPT/HCPCS: 36415; 74176; 80048; 80053; 81001; 82947; 85025; 96360; 96361; 97116; 97162; 97166; 97530; G0378; G0379; J7030

== ENCOUNTER 2021-07-12 14:50 | Inpatient (IN) | payer MEDICARE, OTHER ==
[~2021-07-12] VITALS: Ht 185.4 cm; Wt 90.5 kg
--- NOTE | 2021-07-12 15:13 | PHYS DOC ---
Past History Past Surgical History: Appendectomy, Coronary Bypass Surgery, Pacemaker, Other Additional Past Surgical Histo: bilat knee replacement; cardiac stents x3 Alcohol Use: None Adult General Chief Complaint Chief Complaint: SHORTNESS OF BREATH HPI HPI Patient is a 80 year old male who presents with complaint of shortness of breath. Patient was advised to come to the emergency department from his doctor's office due to concern for a possible right pleural effusion. Patient states that he has been having worsening shortness of breath over the past 3 days. Noted history of congestive heart failure. Patient has also had recent imaging which showed signs of a small right pleural effusion and elevated right hemidiaphragm. Patient had a chest x-ray performed at his primary care physician's office and was instructed to come to the emergency department due to concern for a worsening pleural effusion. Patient denies fevers. Notes significant worsening shortness of breath with exertion and also notes increasing swelling in the lower extremities. Currently denies chest pain, abdominal pain, or diarrhea. Review of Systems Review of Systems Constitutional: Denies fever or chills [] Eyes: Denies change in visual acuity, redness, or eye pain [] HENT: Denies nasal congestion or sore throat [] Respiratory: Denies cough or shortness of breath [] Cardiovascular: Lower extremity swelling, dyspnea on exertion, denies chest pain [] GI: Denies abdominal pain, nausea, vomiting, bloody stools or diarrhea [] : Denies dysuria or hematuria [] Musculoskeletal: Denies back pain or joint pain [] Integument: Denies rash or skin lesions [] Neurologic: Denies headache, focal weakness or sensory changes [] All other systems were reviewed and found to be within normal limits, except as documented in this note. Allergies Allergies Allergies Coded Allergies Type Severity Reaction Last Updated Verified No Known Drug Allergies 05/22/21 No Physical Exam Physical Exam Constitutional: Alert, afebrile, appears in mild respiratory distress. [] HENT: Normocephalic, atraumatic, bilateral external ears normal, oropharynx moist, no oral exudates, nose normal. [] Eyes: PERRLA, EOMI, conjunctiva normal, no discharge. [] Neck: Normal range of motion, no tenderness, supple, no stridor. [] Cardiovascular:Heart rate regular rhythm, no murmur [] Lungs & Thorax: Decreased breath sounds in the right lower lobe, occasional rales, no wheezing [] Abdomen: Bowel sounds normal, soft, no tenderness, no masses, no pulsatile masses. [] Skin: Warm, dry, no erythema, no rash. [] Back: No tenderness, no CVA tenderness. [] Extremities: No tenderness, no cyanosis, no clubbing, ROM intact, 1+ pedal edema in the bilateral lower extremities. [] Neurologic: Alert and oriented X 3, normal motor function, normal sensory function, no focal deficits noted. [] Current Patient Data Vital Signs Vital Signs Date Time Temp Pulse Resp B/P (MAP) Pulse Ox O2 Delivery O2 Flow Rate FiO2 07/12/21 14:58 98.3 70 16 137/56 (83) 96 Room Air Lab Results Laboratory Tests Test 07/12/21 15:02 White Blood Count 4.3 x10^3/uL Red Blood Count 3.75 x10^6/uL Hemoglobin 12.1 g/dL Hematocrit 36.2 % Mean Corpuscular Volume 97 fL Mean Corpuscular Hemoglobin 32 pg Mean Corpuscular Hemoglobin Concent 34 g/dL Red Cell Distribution Width 15.6 % Platelet Count 151 x10^3/uL Neutrophils (%) (Auto) 60 % Lymphocytes (%) (Auto) 24 % Monocytes (%) (Auto) 11 % Eosinophils (%) (Auto) 4 % Basophils (%) (Auto) 1 % Neutrophils # (Auto) 2.6 x10^3uL Lymphocytes # (Auto) 1.0 x10^3/uL Monocytes # (Auto) 0.5 x10^3/uL Eosinophils # (Auto) 0.2 x10^3/uL Basophils # (Auto) 0.0 x10^3/uL Prothrombin Time 11.6 SEC Prothromb Time International Ratio 1.1 Activated Partial Thromboplast Time 25 SEC Sodium Level 137 mmol/L Potassium Level 4.3 mmol/L Chloride Level 101 mmol/L Carbon Dioxide Level 30 mmol/L Anion Gap 6 Blood Urea Nitrogen 18 mg/dL Creatinine 1.2 mg/dL Estimated GFR (Cockcroft-Gault) 58.0 BUN/Creatinine Ratio 15 Glucose Level 164 mg/dL Calcium Level 8.0 mg/dL Magnesium Level 1.7 mg/dL Total Bilirubin 0.7 mg/dL Aspartate Amino Transf (AST/SGOT) 43 U/L Alanine Aminotransferase (ALT/SGPT) 30 U/L Alkaline Phosphatase 91 U/L Troponin I High Sensitivity 26 ng/L RV-Dhp-I-Type Natriuretic Peptide 5180 pg/mL Total Protein 5.5 g/dL Albumin 2.4 g/dL Albumin/Globulin Ratio 0.8 Current Medications Medications (Trade) Dose Ordered Sig/Nik Route PRN Reason Start Time Stop Time Status Last Admin Dose Admin Sodium Chloride 1,000 ml @ 0 mls/hr Q0M IV 07/12/21 16:45 07/13/21 16:44 UNV EKG EKG Interpreted by me: Heart rate 60 bpm, ventricularly paced rhythm, no acute ST elevations [] Radiology/Procedures Radiology/Procedures [address] [address] IMAGING REPORT Signed PATIENT: LILA JO ACCOUNT: [id number] : 1940 LOCATION: ER AGE: 80 SEX: M EXAM STATUS: REG ER ORD. PHYSICIAN: LEANDRA PHELAN MD REASON: shortness of breath, concern for worsening pleural effusion PROCEDURE: PORTABLE CHEST 1V EXAM: Chest, single view. HISTORY: Shortness of breath. COMPARISON: 06/23/2021 FINDINGS: A frontal view of the chest is obtained. There is a stable moderate right pleural effusion with associated right middle and lower lobe compressive atelectasis or infiltrate. There is a stable small left pleural effusion. There is cardiomegaly. There is a patulous distal esophagus. There is a gastric lap band. There is a cardiac pacemaker and evidence of prior CABG. There is no pneumothorax. IMPRESSION: 1. Stable moderate right pleural effusion and right middle and lower lobe compressive atelectasis or infiltrate. 2. Stable small left pleural effusion. 3. Cardiomegaly. Electronically signed by: Chelsey Williamson MD (07/12/2021 3:24 PM) [id number] DICTATED AND SIGNED BY: CHELSEY WILLIAMSON MD DATE: 07/12/211521 CC: KATHI BLACKWELL MD; LEANDRA PHELAN MD ~ [address] [address] IMAGING REPORT Signed PATIENT: LILA JO ACCOUNT: [id number] : 1940 LOCATION: ER AGE: 80 SEX: M EXAM STATUS: REG ER ORD. PHYSICIAN: LEANDRA PHELAN MD REASON: possible right-sided pleural effusion versus pneumonia/atelectasi PROCEDURE: CT CHEST WO CONTRAST CT THORAX WO dated 07/12/2021 3:44 PM Indication:Reason: possible right-sided pleural effusion versus pneumonia/atelectasi / Spl. Instructions: / History: Comparison: CT 06/23/2021. Technique: Helical noncontrast images were performed. One or more of the following individualized dose reduction techniques were utilized for this examination: 1. Automated exposure control 2. Adjustment of the mA and/or kV according to patient size 3. Use of iterative reconstruction technique Findings: Right hemidiaphragm remains elevated. There is still a small right-sided effusion with some atelectasis at the right lung base. No new consolidation or left-sided effusion is seen. There is some interlobular septal thickening could indicate mild edema. The central airways show no obstruction. No enlarged axillary, mediastinal or hilar lymph nodes are seen. Evaluation is somewhat limited by lack of IV contrast. Images through the upper abdomen show no new abnormality. A lap band device is again demonstrated at the expected location. Gallstones are again shown and gallbladder. IMPRESSION: Findings are similar to the previous exam. There is continued elevation of the right hemidiaphragm and presence of a small right-sided pleural effusion with areas of atelectasis at the right lung base. No new area of infiltrate is seen to suggest acute pneumonia. There is some interstitial thickening that could indicate mild edema. Electronically signed by: Carli Gross Jr., MD (07/12/2021 3:56 PM) [id number] DICTATED AND SIGNED BY: CARLI GROSS Jr, MD DATE: 07/12/21 155 CC: KATHI BLACKWELL MD; LEANDRA PHELAN MD ~ [] Heart Score C/O Chest Pain: No Risk Factors: Risk Factors: DM, Current or recent (<one month) smoker, HTN, HLP, family history of CAD, obesity. Risk Scores: Risk Factors: DM, Current or recent (<one month) smoker, HTN, HLP, family history of CAD, obesity. Course & Med Decision Making Course & Med Decision Making Pertinent Labs and Imaging studies reviewed. (See chart for details) CT imaging was performed which showed stable findings of a small right pleural effusion as well as elevated right hemidiaphragm. No evidence of active pneumonia. I suspect patient's symptoms are secondary to acute on chronic congestive heart failure. I contacted patient's primary care provider, Dr. Horace blackwood, and spoke with him regarding examination and lab findings. He has agreed to accept patient to the hospital for further treatment. Started on IV Lasix 60 mg in the emergency department. Spoke with patient and family regarding plan of care and they are in agreement at time of disposition. [] Dragon Disclaimer Dragon Disclaimer This electronic medical record was generated, in whole or in part, using a voice recognition dictation system. Departure Departure: Impression: Primary Impression: Acute on chronic diastolic CHF (congestive heart failure) Additional Impressions: Pleural effusion Dyspnea Disposition: ADMITTED INPATIENT Admitting Physician: Kathi Blackwell Condition: STABLE Referrals: KATHI BLACKWELL MD (PCP) Problem Qualifiers Additional Impressions: Dyspnea Dyspnea type: dyspnea on exertion Qualified Codes: R06.00 - Dyspnea, unspecified LEANDRA PHELAN MD July 12, 2021 15:13
[2021-07-12 15:23] LABS: BASO % 1 % (0-3); EOS # 0.2 x10^3/uL (0.0-0.7); EOS % 4 % (0-3); HEMATOCRIT 36.2 % (39.0-53.0); HEMOGLOBIN 12.1 g/dL (13.0-17.5); LYMPH % 24 % (24-48); MEAN CORPUSCULAR HEMOGLOBIN 32 pg (25-35); MEAN CORPUSCULAR HGB CONC 34 g/dL (31-37); MEAN CORPUSCULAR VOLUME 97 fL (79-100); MONO # 0.5 x10^3/uL (0.0-1.1); MONO % 11 % (0-9); NEUT # 2.6 x10^3uL (1.8-7.7); NEUT % 60 % (31-73); PLATELET COUNT 151 x10^3/uL (140-400); RED BLOOD COUNT 3.75 x10^6/uL (4.30-5.70); RED CELL DISTRIBUTION WIDTH 15.6 % (11.5-14.5); WHITE BLOOD COUNT 4.3 x10^3/uL (4.0-11.0)
--- NOTE | 2021-07-12 15:26 | RAD ---
EXAM: Chest, single view. HISTORY: Shortness of breath. COMPARISON: 06/23/2021 FINDINGS: A frontal view of the chest is obtained. There is a stable moderate right pleural effusion with associated right middle and lower lobe compressive atelectasis or infiltrate. There is a stable small left pleural effusion. There is cardiomegaly. There is a patulous distal esophagus. There is a gastric lap band. There is a cardiac pacemaker and evidence of prior CABG. There is no pneumothorax. IMPRESSION: 1. Stable moderate right pleural effusion and right middle and lower lobe compressive atelectasis or infiltrate. 2. Stable small left pleural effusion. 3. Cardiomegaly. Electronically signed by: Chelsey Rae MD (07/12/2021 3:24 PM) [id number]
[2021-07-12 15:58] LABS: CREATININE 1.2 mg/dL (0.7-1.3); POTASSIUM 4.3 mmol/L (3.5-5.1)
--- NOTE | 2021-07-12 15:58 | RAD ---
CT THORAX WO dated 07/12/2021 3:44 PM Indication:Reason: possible right-sided pleural effusion versus pneumonia/atelectasi / Spl. Instructi ons: / History: Comparison: CT 06/23/2021. Technique: Helical noncontrast images were performed. One or more of the following individualized dose reduction techniques were utilized for this examinat ion: 1. Automated exposure control 2. Adjustment of the mA and/or kV according to patient size 3. Use of iterative reconstruction technique Findings: Right hemidiaphragm remains elevated. There is still a small right-sided effusion with some atelectas is at the right lung base. No new consolidation or left-sided effusion is seen. There is some interlo bular septal thickening could indicate mild edema. The central airways show no obstruction. No enlarg ed axillary, mediastinal or hilar lymph nodes are seen. Evaluation is somewhat limited by lack of IV contrast. Images through the upper abdomen show no new abnormality. A lap band device is again demonstrated at the expected location. Gallstones are again shown and gallbladder. IMPRESSION: Findings are similar to the previous exam. There is continued elevation of the right hemidiaphragm an d presence of a small right-sided pleural effusion with areas of atelectasis at the right lung base. No new area of infiltrate is seen to suggest acute pneumonia. There is some interstitial thickening t hat could indicate mild edema. Electronically signed by: Jason Gross Jr., MD (07/12/2021 3:56 PM) [id number]
[2021-07-12 16:10] LABS: ALBUMIN 2.4 g/dL (3.4-5.0); ALBUMIN/GLOBULIN RATIO 0.8 (1.0-1.7); MAGNESIUM 1.7 mg/dL (1.8-2.4); TOTAL BILIRUBIN 0.7 mg/dL (0.2-1.0); TOTAL PROTEIN 5.5 g/dL (6.4-8.2)
[2021-07-12] MEDS ORDERED: IV NORMAL SALINE 1,000ML 1,000 ML IV SCH (16:45)
[2021-07-12] MEDS ORDERED: FUROSEMIDE 40 MG/4 ML VIAL IVP ONE (16:45)
[2021-07-12 20:50] VITALS: BP 145/84
[2021-07-13 03:05] VITALS: BP 122/78
[2021-07-13 06:54] LABS: BASO % 1 % (0-3); EOS # 0.2 x10^3/uL (0.0-0.7); EOS % 3 % (0-3); HEMATOCRIT 36.6 % (39.0-53.0); HEMOGLOBIN 12.4 g/dL (13.0-17.5); LYMPH # 1.4 x10^3/uL (1.0-4.8); LYMPH % 26 % (24-48); MEAN CORPUSCULAR HEMOGLOBIN 32 pg (25-35); MEAN CORPUSCULAR HGB CONC 34 g/dL (31-37); MEAN CORPUSCULAR VOLUME 96 fL (79-100); MONO # 0.5 x10^3/uL (0.0-1.1); MONO % 9 % (0-9); NEUT # 3.4 x10^3uL (1.8-7.7); NEUT % 62 % (31-73); PLATELET COUNT 146 x10^3/uL (140-400); RED BLOOD COUNT 3.82 x10^6/uL (4.30-5.70); RED CELL DISTRIBUTION WIDTH 15.7 % (11.5-14.5); WHITE BLOOD COUNT 5.6 x10^3/uL (4.0-11.0)
[2021-07-13 07:00] LABS: CALCIUM 8.6 mg/dL (8.5-10.1); CREATININE 1.1 mg/dL (0.7-1.3); GFR 64.1; POTASSIUM 3.9 mmol/L (3.5-5.1)
[2021-07-13] MEDS: CLOPIDOGREL BISULFATE 75 MG TABLET PO SCH (08:23)
[2021-07-13] MEDS: LEVOTHYROXINE 137 MCG TABLET PO SCH (08:23)
[2021-07-13] MEDS: CETIRIZINE HCL 10 MG TABLET PO SCH (08:23)
[2021-07-13] MEDS: ASPIRIN CHEWABLE 81 MG TABLET. PO SCH (08:23)
[2021-07-13] MEDS: CITALOPRAM 20 MG TABLET. PO SCH (08:24)
[2021-07-13] MEDS: FUROSEMIDE 20 MG TABLET PO SCH (08:24)
[2021-07-13] MEDS: CARVEDILOL 6.25 MG TABLET PO SCH ×2 (08:25→17:00)
[2021-07-13] MEDS: FLUTICASONE 50MCG/NASAL SPRAY 16GM BOTTLE. NS SCH (08:25)
[2021-07-13] MEDS: INSULIN GLARGINE SYRINGE. SQ SCH (08:57)
[2021-07-13 09:13] VITALS: BP 144/81
[2021-07-13 15:40] VITALS: BP 135/87
[2021-07-13 19:30] VITALS: BP 133/80
[2021-07-13] MEDS ORDERED: ATORVASTATIN CALCIUM 20 MG TABLET PO SCH (21:00)
[2021-07-13] MEDS ORDERED: traZODone 50 MG TABLET. PO SCH (21:00)
[2021-07-14 04:10] VITALS: BP 139/85
[2021-07-14] MEDS: LEVOTHYROXINE 137 MCG TABLET PO SCH (05:22)
--- NOTE | 2021-07-14 05:54 | PN ---
SUBJECTIVE: An 80-year-old male in with congestive heart failure, acute on top of chronic. Says he is breathing a little bit better. OBJECTIVE: VITAL SIGNS: Blood pressure 140/80, respiratory rate 16, pulse 76, afebrile, 96% on room air. HEENT: The patient's head was atraumatic, normocephalic. Eyes: PERRLA without jaundice. LUNGS: Diminished throughout, poor movement of air, but markedly improved from where they were yesterday. The patient otherwise seems to be making fairly good progress overall. CARDIOVASCULAR: Stable. ABDOMEN: Protuberant, soft, nontender. EXTREMITIES: No clubbing, cyanosis or edema. NEUROLOGIC: The patient is alert and oriented, cheerful individual. The patient continued to be monitored. Hemoglobin 12 and 36. Sodium and potassium 140 and 3.9. Blood sugars in the 100s. The patient's magnesium, slightly low. BNP was 5100 when brought in. IMPRESSION: Acute on top of chronic diastolic heart failure, essential hypertension. PLAN: Continue to monitor the patient accordingly, make further evaluation as indicated. YONY DR: Caprice TID: [id number]
[2021-07-14 08:30] VITALS: BP 142/80
[2021-07-14] MEDS: FLUTICASONE 50MCG/NASAL SPRAY 16GM BOTTLE. NS SCH (08:57)
[2021-07-14] MEDS: CLOPIDOGREL BISULFATE 75 MG TABLET PO SCH (08:58)
[2021-07-14] MEDS: CARVEDILOL 6.25 MG TABLET PO SCH (08:58)
[2021-07-14] MEDS: CITALOPRAM 20 MG TABLET. PO SCH (08:58)
[2021-07-14] MEDS: CETIRIZINE HCL 10 MG TABLET PO SCH (08:58)
[2021-07-14] MEDS: ASPIRIN CHEWABLE 81 MG TABLET. PO SCH (08:59)
[2021-07-14] MEDS: FUROSEMIDE 20 MG TABLET PO SCH (08:59)
[2021-07-14] MEDS: INSULIN GLARGINE SYRINGE. SQ SCH (09:07)
[2021-07-14 11:41] VITALS: BP 134/74
--- NOTE | 2021-07-14 14:46 | DS ---
DATE OF DISCHARGE: 07/14/2021 HOSPITAL COURSE: An 80-year-old male who came in with increased shortness of breath and dyspnea, was noted to be in heart failure. The patient made good progress with IV Lasix and monitoring his vital signs. The patient's labs showed hemoglobin of 12 and 36 with a white count of 5. Sodium and potassium 140 and 3.9. Blood sugars in the 100s there. Other than that, the patient made good progress. He did have severe protein malnutrition and a slightly low magnesium by a tenth of mEq. IMPRESSION: Acute on top of chronic diastolic heart failure, hyperglycemia, pleural effusion, dyspnea, severe protein malnutrition. The patient will be discharged home. Followup as an outpatient and make further evaluation on him as an outpatient. SOURAV/JOSE LUIS DR: Caprice TID: [id number]
[2021-07-19] MEDS ORDERED: NON FORMULARY ITEM (Dulaglutide (Trulicity) 1.5 MG) SQ SCH (09:00)
== END 2021-07-14 13:45 | disposition home or self-care (01) | DRG 291 ==
LOC: ER 14:50 → ER HOLD 16:59 → 1 SOUTH 20:31
PROVIDERS: ADMIT Family Medicine; ATTEND Family Medicine
DX: I11.0 Hypertensive heart disease with heart failure (principal); E43 Unspecified severe protein-calorie malnutrition; I50.33 Acute on chronic diastolic (congestive) heart failure; J98.11 Atelectasis; Z90.49 Acquired absence of other specified parts of digestive tract; Z95.1 Presence of aortocoronary bypass graft; Z95.5 Presence of coronary angioplasty implant and graft; Z96.653 Presence of artificial knee joint, bilateral; Z68.26 Body mass index [BMI] 26.0-26.9, adult; R73.9 Hyperglycemia, unspecified
CPT/HCPCS: 36415; 71045; 71250; 80048; 80053; 82947; 83735; 83880; 84484; 85025; 85610; 85730; 93005; 96361; 96374; J1815; J1940; 99285-25; J7030

== ENCOUNTER 2021-07-19 19:13 | Emergency (ER) | payer MEDICARE, OTHER ==
[~2021-07-19] VITALS: Ht 185.4 cm; Wt 90.5 kg
--- NOTE | 2021-07-19 20:03 | RAD ---
Exam: CT of abdomen and pelvis without contrast INDICATION: Hematuria, Back pain TECHNIQUE: Sequential axial images through the abdomen and pelvis obtained without IV contrast. Sagit navdeep and coronal reformatted images were reconstructed from the axial data and reviewed. Exposure: One or more of the following in the visualized dose reduction techniques were utilized for this examination: 1. Automated exposure control 2. Adjustment of the MA and/or KV according to patient size 3. Use of iterative of reconstructive technique Comparisons: 07/04/2021 FINDINGS: Heart is enlarged. Pacer leads noted in the right heart. No pericardial effusion. Small right pleural effusion. Evaluation solid organs limited noncontrast technique. Liver, spleen, pancreas and adrenals are unremarkable. Gallstones noted within the gallbladder. No perinephric inflammation or hydronephrosis. No renal or ureteral calculi are identified. Bladder is decompressed not well evaluated. Prostate is not enlarged. Peterson balloon noted in the blad stephane. There is mild wall thickening noted at the rectum. Diverticulosis at the descending and sigmoid colon . Moderate amount stool noted throughout the colon. Appendix is not identified. Small bowel is unrema rkable. Gastric banding device is seen. Small hiatal hernia. Abdominal aorta has normal course and caliber. No enlarged abdominal lymph nodes are identified. No suspicious osseous lesions or acute fractures. IMPRESSION: 1. Mild wall thickening at the rectum. Correlate with symptomatology for colitis. 2. Diverticulosis without evidence of acute diverticulitis. 3. No renal or ureteral calculi. No evidence for obstructive uropathy. 4. Cystic lesion at the left kidney incompletely characterized on this study. Further evaluation wit h nonemergent/outpatient renal ultrasound is recommended. 5. Trace right pleural effusion. Electronically signed by: Lucrecia Cheahtam MD (07/19/2021 8:00 PM) [facility]
--- NOTE | 2021-07-19 20:20 | PHYS DOC ---
Past History Past Surgical History: Appendectomy, Coronary Bypass Surgery, Pacemaker, Other Additional Past Surgical Histo: bilat knee replacement; cardiac stents x3, Peterson in place Alcohol Use: None Adult General Chief Complaint Chief Complaint: BLOOD IN URINE [facility] Patient is a 80-year-old male presenting to the emergency department for evaluation of hematuria that started earlier today. Patient has a Peterson catheter present and noted that his urine is red and today called his primary care provider Dr. Purdy and they told him to come to the emergency department immediately. Patient is on aspirin and Plavix and says that he has not had any abdominal pain back pain fevers chills nausea vomiting or other systemic symptoms. He is in no acute distress with normal vital signs. Review of Systems Review of Systems Constitutional: Denies fever or chills [] Eyes: Denies change in visual acuity, redness, or eye pain [] HENT: Denies nasal congestion or sore throat [] Respiratory: Denies cough or shortness of breath [] Cardiovascular: No additional information not addressed in HPI [] GI: Denies abdominal pain, nausea, vomiting, bloody stools or diarrhea [] : Denies dysuria. + hematuria [] Musculoskeletal: Denies back pain or joint pain [] Integument: Denies rash or skin lesions [] Neurologic: Denies headache, focal weakness or sensory changes [] All other systems were reviewed and found to be within normal limits, except as documented in this note. Allergies Allergies Allergies Coded Allergies Type Severity Reaction Last Updated Verified No Known Drug Allergies 05/22/21 No Physical Exam Physical Exam Constitutional: Well developed, well nourished, no acute distress, non-toxic appearance. [] HENT: Normocephalic, atraumatic, bilateral external ears normal, oropharynx moist, no oral exudates, nose normal. [] Eyes: PERRLA, EOMI, conjunctiva normal, no discharge. [] Neck: Normal range of motion, no tenderness, supple, no stridor. [] Cardiovascular:Heart rate regular rhythm, no murmur [] Lungs & Thorax: Bilateral breath sounds clear to auscultation [] Abdomen: Bowel sounds normal, soft, no tenderness, no masses, no pulsatile mas ses. [] Skin: Warm, dry, no erythema, no rash. [] Back: No tenderness, no CVA tenderness. [] Extremities: No tenderness, no cyanosis, no clubbing, ROM intact, no edema. [] Neurologic: Alert and oriented X 3, normal motor function, normal sensory function, no focal deficits noted. [] Current Patient Data Vital Signs Vital Signs Date Time Temp Pulse Resp B/P (MAP) Pulse Ox O2 Delivery O2 Flow Rate FiO2 07/19/21 19:26 98.1 72 18 149/75 (99) 96 Room Air EKG EKG [] Radiology/Procedures Radiology/Procedures [] Heart Score C/O Chest Pain: No Risk Factors: Risk Factors: DM, Current or recent (<one month) smoker, HTN, HLP, family history of CAD, obesity. Risk Scores: Risk Factors: DM, Current or recent (<one month) smoker, HTN, HLP, family hi story of CAD, obesity. Course & Med Decision Making Course & Med Decision Making CT shows no acute pathology. Labs and urinalysis are pending. I spoke to Dr. Blackwell and he recommended that patient could be released and keep his follow- up with his urologist next week. He stated that if they wanted to see a urologist in the short-term that they would have to drive to [place] or [facility] where he is going to see his urologist. Patient has benign imaging with no acute process but did discuss all incidental findings including the possible colitis but he says he is having no GI symptoms and also recommend he will need follow-up for his renal cyst as well. His labs overall appear normal but I did discuss all incidental findings on this as well including hyperglycemia and the need for follow-up. Patient says that he feels well and is asymptomatic with his hematuria. I rechecked his catheter bag and there is no clots present. I recommended that he keep an eye on his urine and if he develops clots that he may have to go to a facility that has urology but at this time there is no acute pathology necessitating a three-way catheter with continuous irrigation. Patient will be discharged in stable condition told to follow with his urologist on Thursday and come back to emergency department sooner with worsening pain bleeding dizziness or other general concerns. Patient aware and agreeable with plan and he was discharged in a stable condition with normal vital signs. Dragon Disclaimer Dragon Disclaimer This electronic medical record was generated, in whole or in part, using a voice recognition dictation system. Departure Departure: Impression: Primary Impression: Hematuria Referrals: KATHI BLACKWELL MD (PCP) Patient Instructions: Hematuria, Adult Additional Instructions: There is no signs of severe infection. I will start you on an antibiotic in case there is early infection. Keep your follow-up with a urologist and go back to the emergency department with worsening bleeding or clotting noted in the urine. Scripts Cephalexin (KEFLEX) 500 Mg Capsule 1 CAP PO TID, #21 CAP Prov: ELLEN TRIVEDI DO 07/19/21 Problem Qualifiers Primary Impression: Hematuria Hematuria type: unspecified type Qualified Codes: R31.9 - Hematuria, unspecified ELLEN TRIVEDI DO July 19, 2021 20:20
[2021-07-19 20:52] LABS: CALCIUM 8.3 mg/dL (8.5-10.1); CREATININE 1.1 mg/dL (0.7-1.3); GFR 64.1; POTASSIUM 3.5 mmol/L (3.5-5.1)
[2021-07-19 20:53] LABS: BASO % 1 % (0-3); EOS # 0.2 x10^3/uL (0.0-0.7); EOS % 4 % (0-3); HEMATOCRIT 38.3 % (39.0-53.0); HEMOGLOBIN 12.7 g/dL (13.0-17.5); LYMPH # 1.4 x10^3/uL (1.0-4.8); LYMPH % 24 % (24-48); MEAN CORPUSCULAR HEMOGLOBIN 32 pg (25-35); MEAN CORPUSCULAR HGB CONC 33 g/dL (31-37); MEAN CORPUSCULAR VOLUME 97 fL (79-100); MONO # 0.5 x10^3/uL (0.0-1.1); MONO % 9 % (0-9); NEUT # 3.4 x10^3uL (1.8-7.7); NEUT % 62 % (31-73); PLATELET COUNT 143 x10^3/uL (140-400); RED BLOOD COUNT 3.96 x10^6/uL (4.30-5.70); RED CELL DISTRIBUTION WIDTH 15.9 % (11.5-14.5); WHITE BLOOD COUNT 5.6 x10^3/uL (4.0-11.0)
[2021-07-19 20:58] LABS: ALBUMIN 2.4 g/dL (3.4-5.0); ALBUMIN/GLOBULIN RATIO 0.6 (1.0-1.7); TOTAL BILIRUBIN 0.6 mg/dL (0.2-1.0); TOTAL PROTEIN 6.2 g/dL (6.4-8.2)
[2021-07-19 21:26] LABS: CLARITY,URINE CLOUDY; COLOR,URINE RED
[2021-07-19 21:27] LABS: BACTERIA,URINE FEW /HPF (0-FEW); RBC,URINE 20-40 /HPF (0-2); SQUAMOUS EPITHELIAL CELL,UR FEW /LPF; WBC,URINE OCC /HPF (0-4)
[2021-07-19 21:53] VITALS: BP 156/85
[2021-07-19] MEDS ORDERED: CEPH500C PO (21:54)
== END 2021-07-19 22:25 | disposition home or self-care (01) ==
LOC: ER 19:13
DX: R31.9 Hematuria, unspecified (principal); Z90.89 Acquired absence of other organs; Z95.1 Presence of aortocoronary bypass graft; Z95.0 Presence of cardiac pacemaker
CPT/HCPCS: 36415; 74176; 80053; 81001; 85025; 85610; 85730; 99284